=== PATIENT | female | born 1970 | race Caucasian/White ===

== ENCOUNTER → 2021-06-17 | Day surgery (SDC) | payer OTHER ==
[~2021-06-17] MED LIST: ABILIFY10 MG PO; ALDACTONE100 MG PO; ALL DAY ALLERGY10 M2 PO; BOOST237 ML PO; BUSPAR 10MG10 MG PO; BUTALB-ACETAMI1 EACH PO; CELEXA20 MG PO; CELEXA40 MG PO; CHRONULAC20 GM/30 M PO; CORGARD20 MG PO; FERREX 150150 MG PO; HABITROL 14 MG P1 EA TOP; HABITROL 21 MG P1 EA TOP; HYDROXYZINE HCL25 MG PO; LASIX TAB 20 MG20 MG PO; MAGOX 400400 MG PO; PANTOPRAZOLE SO40 MG PO; PREDNISONE20 MG PO; PROAIR HFA8.5 GM INH; PROVENTIL HFA6.7 GM INH; RISAMINE OINTM113 GM TP; SEROQUEL XR400 MG PO; SPIRIVA HANDIH18 MCG INH; SPIRONOLACTONE50 MG PO; TAB-A-VITE1 EACH PO; TOPAMAX15 MG PO; VIBRAMYCIN100 MG PO; VISTARIL 25 MG25 MG PO; VISTARIL25 MG PO; VITAMIN B-1 5050 MG PO; VITAMIN D21250 MCG PO; VITAMIN D250000 UNIT PO; XIFAXAN200 MG PO
== END | disposition home or self-care (01) ==
LOC: OR 06:57
DX: K31.89 Other diseases of stomach and duodenum (principal); K76.6 Portal hypertension; K29.70 Gastritis, unspecified, without bleeding; K72.90 Hepatic failure, unspecified without coma; K70.31 Alcoholic cirrhosis of liver with ascites; F10.10 Alcohol abuse, uncomplicated; D12.2 Benign neoplasm of ascending colon; K21.9 Gastro-esophageal reflux disease without esophagitis; J44.9 Chronic obstructive pulmonary disease, unspecified; K58.9 Irritable bowel syndrome, unspecified; G47.30 Sleep apnea, unspecified; F41.9 Anxiety disorder, unspecified; E66.3 Overweight; F17.210 Nicotine dependence, cigarettes, uncomplicated; Z79.899 Other long term (current) drug therapy; Z20.822 Contact with and (suspected) exposure to COVID-19; Z71.6 Tobacco abuse counseling; Z98.51 Tubal ligation status; Z87.440 Personal history of urinary (tract) infections
CPT/HCPCS: J2704; J7040; U0002